=== PATIENT | female | born 1970 | race Caucasian/White ===

== ENCOUNTER → 2016-07-29 | Outpatient (CLI) | payer OTHER ==
[~2016-07-29] MED LIST: CLIN300C2 PO; DULO60CA44 PO; PROBIOTICS
--- NOTE | 2016-07-29 10:12 | DIAGNOSTIC IMAGING REPORT ---
GI SERIES W/AIR ROUTINE CLINICAL HISTORY: NAUSEA R11.0 COMPARISON STUDY: None. FLUOROSCOPY TIME: 4 minutes. 17 images.. FINDINGS: The patient swallowed barium without difficulty. The esophagus is normal in course, caliber, motility. No hiatus hernia. No gastroesophageal reflux. No gastric ulcerations. The duodenal bulb and duodenal C sweep are within normal limits. IMPRESSION: Normal upper GI series. Electronically signed by: Tho Saunders M.D. 07/29/2016 10:11 AM Dictated Date/Time: 07/29/2016 10:09 AM
== END | disposition home or self-care (01) ==
LOC: C.RAD 09:26
PROVIDERS: ATTEND Nurse Practitioner
DX: R11.0 Nausea (principal)

== ENCOUNTER → 2017-01-02 | Outpatient (CLI) | payer BC | END | disposition home or self-care (01) | LOC: C.LAB 07:41 | PROVIDERS: ATTEND Nutritionist | DX: R53.83 Other fatigue (principal) ==

== ENCOUNTER → 2017-02-05 | Outpatient (CLI) | payer BC | END | disposition home or self-care (01) | LOC: C.PAPS 13:27 | PROVIDERS: ATTEND Obstetrics & Gynecology | DX: Z01.419 Encounter for gynecological examination (general) (routine) without abnormal findings (principal) ==

== ENCOUNTER → 2017-07-23 | Outpatient (CLI) | payer OTHER ==
[~2017-07-23] MED LIST changes: +LORA-741 PO; +THR10 PO
--- NOTE | 2017-07-23 12:29 | DIAGNOSTIC IMAGING REPORT ---
THYROID ULTRASOUND HISTORY: Thyroid nodule. Prebiopsy. COMPARISON: Thyroid ultrasound 06/03/2017. FINDINGS: Preliminary imaging of the right thyroid lobe was performed to determine a safe needle entry site. The 1 cm hypoechoic nodule within the upper pole of the right thyroid lobe was deep to the internal carotid artery and difficult to visualize transaxial. Therefore, the procedure was not performed at this time due to the location. Follow-up thyroid ultrasound is recommended in 6 months to ensure stability. IMPRESSION: Ultrasound guided biopsy was not performed for the 1 cm upper pole nodule within the right thyroid lobe due to its positioning. Follow-up thyroid ultrasound in 6 months is recommended. The patient should not be charged for this study. Electronically signed by: Tho Saunders M.D. 07/23/2017 12:28 PM Dictated Date/Time: 07/23/2017 12:25 PM
== END | disposition home or self-care (01) ==
LOC: C.ULTR 11:07
PROVIDERS: ATTEND Internal Medicine Endocrinology, Diabetes & Metabolism
DX: E04.1 Nontoxic single thyroid nodule (principal)

== ENCOUNTER → 2017-07-24 | Outpatient (CLI) | payer OTHER ==
[2017-07-24 15:00] LABS: BASO % 0.4 %; BASO ABS # 0.03 K/uL (0-0.2); EOS % 0.8 %; EOS ABS # 0.06 K/uL (0-0.5); HEMOGLOBIN 14.7 g/dL (12.0-16.0); IG# 0.01 K/uL (0.00-0.02); LYMPH % 24.5 %; LYMPH ABS # 1.75 K/uL (1.2-3.4); MEAN CELL VOLUME 88.1 fL (80-100); MEAN CORPUSCULAR HEMOGLOBIN 30.8 pg (25-34); MEAN PLATELET VOLUME 9.7 fL (7.4-10.4); MONO % 5.5 %; MONO ABS # 0.39 K/uL (0.11-0.59); NEUT % 68.7 %; NEUT ABS # 4.89 K/uL (1.4-6.5); PLATELET COUNT 329 K/uL (130-400); RED CELL DISTRIBUTION WIDTH CV 12.2 % (11.5-14.5); RED CELL DISTRIBUTION WIDTH SD 39.1 fL (36.4-46.3); WHITE BLOOD COUNT 7.13 K/uL (4.8-10.8)
[2017-07-24 15:18] LABS: ALBUMIN 4.2 gm/dl (3.4-5.0); ALT/SGPT 20 U/L (12-78); AST/SGOT 13 U/L (15-37); BLOOD UREA NITROGEN 9 mg/dl (7-18); CALCIUM 9.3 mg/dl (8.5-10.1); CARBON DIOXIDE 25 mmol/L (21-32); CREATININE 0.86 mg/dl (0.60-1.20); GLUCOSE 88 mg/dl (70-99); POTASSIUM 3.9 mmol/L (3.5-5.1); SODIUM 140 mmol/L (136-145)
[2017-07-24 15:36] LABS: ALKALINE PHOSPHATASE 61 U/L (45-117); TOTAL PROTEIN 7.5 gm/dl (6.4-8.2)
[2017-07-24 16:08] LABS: FOLLICLE STIMULAT HORMONE 9.66 IU/L
[2017-07-24 16:17] LABS: T3 FREE 3.22 pg/ml (2.30-4.20)
[2017-07-29 16:36] LABS: TESTOSTERONE,TOTAL 19 ng/dL (2-45)
== END | disposition home or self-care (01) ==
LOC: C.LAB1850 11:54
PROVIDERS: ATTEND Internal Medicine Endocrinology, Diabetes & Metabolism
DX: N95.1 Menopausal and female climacteric states (principal); R53.83 Other fatigue; T14.8XXA Other injury of unspecified body region, initial encounter; X58.XXXA Exposure to other specified factors, initial encounter

== ENCOUNTER → 2017-07-25 | Day surgery (SDC) | payer OTHER ==
[~2017-07-25] VITALS: Ht 160 cm; Wt 51.0 kg
[~2017-07-25] MED LIST changes: +COSYNTROPIN INJ 1 MCG in SYRINGE 0 ML IV SCH
[2017-07-25 07:55] VITALS: BP 121/71; PULSE 86; TEMP 36.6; O2SAT 100; Ht 160 cm; Wt 51.0 kg
[2017-07-25 08:50] VITALS: BP 129/82; PULSE 86; O2SAT 100
[2017-07-25 09:33] VITALS: BP 113/76; PULSE 89; O2SAT 100
== END | disposition home or self-care (01) ==
LOC: C.MTU 07:35
PROVIDERS: ATTEND Internal Medicine Endocrinology, Diabetes & Metabolism
DX: R53.83 Other fatigue (principal)

== ENCOUNTER → 2017-07-25 | Outpatient (CLI) | payer OTHER ==
[~2017-07-25] MED LIST changes: -COSYNTROPIN INJ 1 MCG in SYRINGE 0 ML IV SCH
[2017-07-30 15:12] LABS: INSULIN LIKE GROWTH FACTOR-I 151 ng/mL (52-328)
== END | disposition home or self-care (01) ==
LOC: C.LAB1850 07:10
PROVIDERS: ATTEND Internal Medicine Endocrinology, Diabetes & Metabolism
DX: L65.9 Nonscarring hair loss, unspecified (principal); R53.83 Other fatigue; E04.1 Nontoxic single thyroid nodule

== ENCOUNTER → 2017-07-29 | Outpatient (CLI) | payer OTHER ==
[~2017-07-29] MED LIST changes: -CLIN300C2 PO; -DULO60CA44 PO; +OPTIRAY 320 IV PRN; -PROBIOTICS
--- NOTE | 2017-07-29 08:41 | DIAGNOSTIC IMAGING REPORT ---
CT OF THE ABDOMEN AND PELVIS WITH AND WITHOUT CONTRAST ADRENAL PROTOCOL CLINICAL HISTORY: Flank pain. Possible pheochromocytoma. COMPARISON STUDY: Right upper quadrant ultrasound May 20, 2016. TECHNIQUE: Unenhanced and venous phase imaging of the abdomen and pelvis was performed. Injection of 93 cc Optiray 320 IV was uneventful. 15 minute delayed phase imaging through the abdomen was also performed. A dose lowering technique was utilized adhering to the principles of ALARA. CT DOSE: 690.29 mGycm FINDINGS: The liver, spleen, adrenal glands, kidneys and pancreas are normal. There is no biliary or pancreatic ductal dilatation. 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 There is no pericholecystic infiltration. There is no hydronephrosis. There is no peripancreatic or pericholecystic infiltration. No mass within the abdomen or pelvis is identified to suggest a pheochromocytoma. There is no ascites. There is no lymphadenopathy. Ovaries are not enlarged. Intrauterine device is in place. No renal, ureteral or bladder calculi are present. No suspicious osseous lesions are present. IMPRESSION: 1. No adrenal mass. No mass within the abdomen or pelvis to suggest a pheochromocytoma. 2. No acute process within the abdomen or pelvis. 3. Intrauterine device in place. Electronically signed by: Raheel Palmer M.D. 07/29/2017 8:40 AM Dictated Date/Time: 07/29/2017 8:21 AM
== END | disposition home or self-care (01) ==
LOC: C.CTS 07:23
PROVIDERS: ATTEND Internal Medicine Endocrinology, Diabetes & Metabolism
DX: R10.9 Unspecified abdominal pain (principal); Z97.5 Presence of (intrauterine) contraceptive device

== ENCOUNTER → 2017-08-06 | Outpatient (CLI) | payer OTHER ==
[~2017-08-06] MED LIST changes: -OPTIRAY 320 IV PRN
== END | disposition home or self-care (01) ==
LOC: C.LABSPEC 08:28
PROVIDERS: ATTEND Internal Medicine Endocrinology, Diabetes & Metabolism
DX: R53.83 Other fatigue (principal); E04.1 Nontoxic single thyroid nodule; R10.9 Unspecified abdominal pain

== ENCOUNTER → 2017-10-16 | Outpatient (CLI) | payer OTHER ==
[~2017-10-16] VITALS: Ht 160 cm; Wt 55.1 kg
[2017-10-16 09:42] VITALS: BP 127/82; PULSE 109; Ht 160 cm; Wt 55.1 kg
== END | disposition home or self-care (01) ==
LOC: C.NEUR 09:26
PROVIDERS: ATTEND Internal Medicine Pulmonary Disease
DX: F51.05 Insomnia due to other mental disorder (principal); F41.8 Other specified anxiety disorders; F45.8 Other somatoform disorders

== ENCOUNTER → 2018-01-23 | Outpatient (CLI) | payer OTHER ==
--- NOTE | 2018-01-23 15:47 | DIAGNOSTIC IMAGING REPORT ---
ULTRASOUND OF THE THYROID GLAND CLINICAL HISTORY: Thyroid nodule. COMPARISON STUDY: Thyroid ultrasound dated 06/03/2017. TECHNIQUE: Real-time, grayscale, and color flow sonography of the thyroid gland is performed utilizing a high-frequency linear transducer. Images are reviewed in the transverse and longitudinal planes. FINDINGS: Right lobe: The right lobe of the thyroid gland is normal in size and homogeneous in echotexture, measuring 5.1 x 1.5 x 1.6 cm. A honeycomb nodule in the upper pole measures 1.0 x 0.7 x 0.7 cm (previously measured 1.1 x 0.7 x 0.6 cm). Left lobe: The left lobe of the thyroid gland is normal in size and homogeneous in echotexture, measuring 4.7 x 1.3 x 1.7 cm. Tiny colloid cysts and hypoechoic nodules in the left lobe measure up to 3 mm. Isthmus: The thyroid isthmus is normal in appearance and measures 0.4 cm in AP diameter. A hypoechoic nodule in the right isthmus measures 0.5 x 0.3 x 0.5 cm (previously measured 0.5 x 0.3 x 0.4 cm). IMPRESSION: 1. The thyroid gland is normal in size and echotexture. 2. Scattered low suspicion thyroid nodules measure up to 1 cm are unchanged from previous. Electronically signed by: Jules Lopez M.D. 01/23/2018 3:46 PM Dictated Date/Time: 01/23/2018 3:44 PM
== END | disposition home or self-care (01) ==
LOC: C.ULTR 15:16
PROVIDERS: ATTEND Internal Medicine Endocrinology, Diabetes & Metabolism
DX: E04.1 Nontoxic single thyroid nodule (principal)